=== PATIENT | female | born 1960 | race Caucasian/White ===

== ENCOUNTER 2016-09-20 18:57 | Inpatient (IN) | payer OTHER ==
--- NOTE | ~2016-09-20 | HP ---
History And Physical [place] [address] [facility] [place]. [address] NAME: SEBASTIAN MOULTON : 56 STATUS : [facility]#: [id number] AGE: 55 ADM/REG DATE : 09/20/16 MR#: [id number] REPORT SERV DATE: 09/21/16 DICTATED BY: KAMINI POWERS DATE: 09/21/16 REPORT STATUS : Draft TRANSCRIBED BY: MODL DATE: 09/21/16 DATE OF ADMISSION: 09/20/2016 CHIEF COMPLAINT: A 55-year-old female with metastatic colon cancer, now presenting with increasing abdominal pain and vomiting. HISTORY OF PRESENT ILLNESS: The patient's history was obtained through careful interview with the patient, coupled with review of [facility] and [facility]. The patient first developed colon cancer in 2009 and had a partial colectomy. Then, in 2013, she was found to have metastatic disease to her liver and was started on chemotherapy under the care of Dr. Abel. Unfortunately, she developed also lung metastasis in 2014. She has had much difficulty with her chemotherapy and is described as being "allergic to everything," having an intolerance to chemotherapy in general. For this reason, she has been considered for referral to [place] for trials of different kinds of chemotherapy. But over the last month, she has had progressive abdominal discomfort and shortness of breath characterized by dyspnea on exertion. She describes early satiety and nausea and vomiting episodes. She has had constipation as well. She has lost about six or seven pounds over the last month, and then over the last few days, she has developed progressive left chest discomfort under her breast. She describes it without much radiation, a pleuritic like discomfort exacerbated by coughing and deep breathing, a soreness quality, 6 to 7/10 severity. Her cough has been generally nonproductive. No fevers or chills. No rash. REVIEW OF SYSTEMS: Otherwise, a 14-point review of systems was obtained and was negative. PAST MEDICAL HISTORY: 1. Colon cancer as mentioned in HPI with metastasis to the liver and the lungs. 2. Gastroesophageal reflux disorder seen by Dr. Storey. 3. Diabetes. Hemoglobin A1c of 10.5, earlier in 08/2016. 4. Triglyceride induced pancreatitis. 5. No cardiac disease, no asthma. PAST SURGICAL HISTORY: 1. Partial colectomy. 2. Hysterectomy. 3. Right upper quadrant abscess drainage. ALLERGIES: ALLERGIES TO MANY TYPES OF CHEMOTHERAPY AND THEN PNEUMONIA VACCINE. SOCIAL HISTORY: Quit smoking about 20 years ago. No alcohol abuse. She is . History And Physical [address] [place]. [address] NAME: SEBASTIAN MOULTON : 56 STATUS : [facility]#: [id number] AGE: 55 ADM/REG DATE : 09/20/16 MR#: [id number] REPORT SERV DATE: 09/21/16 DICTATED BY: KAMINI POWERS DATE: 09/21/16 REPORT STATUS : Draft TRANSCRIBED BY: CRISPIN DATE: 09/21/16 suffers from polio and COPD. They live in [place], [place]. They have three sons, many grandchildren. FAMILY HISTORY: Father with liver cancer. Esophageal cancer. Mother of a stroke at 56 years of age. CURRENT MEDICATIONS: Include Norvasc/olmesartan 5/20 p.o. daily, Lipitor 40 mg p.o. daily, Dulcolax, Tricor 145 mg p.o. daily, hydrocodone p.r.n., ibuprofen p.r.n., Levemir 50 units subcutaneous twice a day, Humalog 12 units before each meal, Ativan 1 mg at bedtime, metoprolol 50 mg p.o. b.i.d., Zofran p.r.n., and Zantac 300 mg p.o. t.i.d. PHYSICAL EXAMINATION: VITAL SIGNS: Temperature 97.2, pulse 77, blood pressure 130/62, respiratory rate 18, and O2 saturation 96% on room air. GENERAL: A pleasant, cooperative female, in no significant distress at the time of interview. HEENT: Pupils equal, round, and reactive to light. Mild conjunctival pallor. No scleral icterus. Nares are patent. Oropharynx is clear of obstruction. Moist mucous membranes. NECK: Trachea midline. No thyromegaly. LYMPH: No cervical lymphadenopathy. No supraclavicular lymphadenopathy. No inguinal lymphadenopathy. RESPIRATORY: Clear to auscultation at bases. No wheezes, no rales, no rhonchi, but the patient does have a labored respiratory effort. CARDIOVASCULAR: Regular rate and rhythm. No murmurs, rubs, or gallops. No current extremity edema is appreciated. ABDOMEN: Soft, nontender, nondistended. Normal bowel sounds auscultated throughout. No hepatosplenomegaly. DERMATOLOGICAL: Warm and dry extremities. No pallor. No cyanosis. PSYCHIATRIC: Normal affect. Good mood. Alert and oriented x3. LABORATORY DATA: AST 303, ALT 333, alkaline phosphatase 353, total bilirubin 3.0, albumin 2.5, troponin negative, lipase 172. White blood cell count 7.3, hemoglobin 10, hematocrit 33, and platelets 198. MCV 79. Sodium 138, potassium 3.9, chloride 104, bicarb 23, BUN 13, creatinine 1.03, and glucose 165. STUDIES: 1. EKG by my own evaluation shows sinus rhythm, low QRS voltage. 2. CT scan of the abdomen and pelvis shows metastatic lung disease, liver metastasis. 3. An apparent imaging of the left wrist shows a fracture. ASSESSMENT AND PLAN: 1. Progressive metastatic colon cancer. Consult Dr. Abel, oncologist. 2. Chest pain. Check an echocardiogram. Check a venous Doppler ultrasound of legs. Seems consistent with pain from metastatic disease. Place on IV narcotic pain management secondary to 10/10 pain with nausea and vomiting. 3. Diabetes. Hemoglobin A1c of 10.5 in 08/2016. Place on sliding scale insulin, premeal insulin, and home Levemir. History And Physical [address] [address] NAME: SEBASTIAN MOULTON : 56 STATUS : [facility]#: [id number] AGE: 55 ADM/REG DATE : 09/20/16 MR#: [id number] REPORT SERV DATE: 09/21/16 DICTATED BY: KAMINI POWERS DATE: 09/21/16 REPORT STATUS : Draft TRANSCRIBED BY: CRISPIN DATE: 09/21/16 4. Left wrist fracture. Will follow closely. KPL/MODL Kamini Powers M.D. / [id number] CC: MD Ted Robert M.D. Derek W Holland, M.D.
--- NOTE | ~2016-09-20 | IDS ---
Interim Discharge Summary [facility] [address] [place]. [address] NAME: SEBASTIAN MOULTON : 56 STATUS : DIS IN PAT#: [id number] AGE: 55 ADM/REG DATE : 09/20/16 MR#: [id number] REPORT SERV DATE: 09/25/16 DICTATED BY: DOUGLAS ADDISON DATE: 09/24/16 REPORT STATUS : Draft TRANSCRIBED BY: MODL DATE: 09/24/16 ADMISSION DATE: 09/20/2016 DISCHARGE DATE: Interim summary covers up to date 09/24/2016. CHIEF COMPLAINT ON ADMISSION: Abdominal pain and vomiting. CURRENT HOSPITAL DIAGNOSES: 1. Progressive metastatic colon cancer with metastasis known to liver and lung. 2. Hyperbilirubinemia due to worsening liver function due to metastasis. 3. Acute encephalopathy likely multifactorial. 4. Epigastric pain. 5. Diabetes mellitus. 6. Elevated ammonia levels. HISTORY OF PRESENT ILLNESS: Please see full H and P by Dr. Sergey Gupta regarding initial presentation. HOSPITAL COURSE: 1. Progressive metastatic colon cancer with known metastasis to lung and liver. The patient was seen by Oncology, no further options for treatment, have recommended hospice. The patient has had a bad experience with hospice in the past and is resistant to this. At this point, we are awaiting for the family to make a decision given the patient's decline. 2. Encephalopathy. The patient's mental status has dramatically declined in the past 3 days. Her ammonia level is elevated, concerned if this may be hepatic, of hyperammonemia. Also concern with chronic benzo use and worsening liver function. I have initiated a benzodiazepine taper. Continue to follow. 3. Hyperbilirubinemia due to liver failure. The patient is slightly jaundiced, this seems to be grossly stable. Suspect again if this is due to progressive liver metastatic disease. 4. Epigastric pain with nausea on admission. The patient was taking chronic frequent NSAIDs. I am concerned that it may be gastritis versus esophagitis. Given poor prognosis, endoscopy was not pursued. She did improve with PPI and Carafate. Continue these medications. 5. Diabetes. She has had dramatic decrease in her insulin requirement. Again suspect this is progressive liver disease and poor p.o. intake as the culprit. She is currently on sliding scale. DISPOSITION: The patient's family has opted to get her home per her wishes. In order to do this, we have consulted hosp[facility] [place]. DISCHARGING DIAGNOSES #. Progressive metastatic colon cancer with progressive liver disease as well as lung metastases. #. Worsening encephalopathy. Interim Discharge Summary [facility] [place]. [address] NAME: SEBASTIAN MOULTON : 56 STATUS : DIS IN PAT#: [id number] AGE: 55 ADM/REG DATE : 09/20/16 MR#: [id number] REPORT SERV DATE: 09/25/16 DICTATED BY: DOUGLAS ADDISON DATE: 09/24/16 REPORT STATUS : Draft TRANSCRIBED BY: MODL DATE: 09/24/16 #. Hyperbilirubinemia. #. Hyperammonemia. Time spent on this including discussion with case management, patient, and patient's family is greater than 30 minutes. DNK/MODL Douglas Addison MD / [id number] / [id number] CC: MD Ted Robert M.D.
[2016-09-20 15:29] LABS: BASOPHILS 0.3 %; BASOPHILS ABSOLUTE 0.02 10/3/uL (0.0-0.16); EOSINOPHILS 1.9 %; EOSINOPHILS ABSOLUTE 0.14 10/3/uL (0.0-0.53); ER CBC TAT 0 Hrs 11 Mins; HEMATOCRIT 32.7 % (36.0-48.0); HEMOGLOBIN 10.4 g/dL (12.0-16.0); IMMATURE GRANULOCYTES 0.1 %; IMMATURE GRANULOCYTES ABSOLUTE 0.01 10/3/uL (0.0-0.11); LYMPHOCYTES 17.7 %; LYMPHOCYTES ABSOLUTE 1.29 10/3/uL (0.67-4.30); MANUAL DIFF NO %; MEAN CORPUS HGB CONC 31.8 g/dL (32.0-36.0); MEAN CORPUSCULAR HEMOGLOB 25.1 pg (26.0-34.0); MONOCYTES 8.2 %; NEUTROPHILS 71.8 %; NEUTROPHILS ABSOLUTE 5.23 10/3/uL (2.02-8.40); PLATELET COUNT 198 10/3/uL (150-400); RED CELL COUNT 4.14 10/6/uL (4.0-5.6); WHITE BLOOD CELLS 7.3 10/3/uL (4.5-10.5)
[2016-09-20 15:40] LABS: A/G RATIO 0.5 (0.7-1.9); ALBUMIN 2.5 G/DL (3.5-5.0); ALKALINE PHOSPHATASE 353 U/L (45-117); BUN (BLOOD UREA NITROGEN) 13 MG/DL (6-23); CALCIUM, SERUM 9.8 MG/DL (8.5-10.4); CHLORIDE, SERUM 104 MMOL/L (96-112); CO2 (CARBON DIOXIDE) 23 MMOL/L (24-34); CREATININE 1.08 MG/DL (0.55-1.02); GFR AFRICAN AMERICAN 66 ML/MIN (>=60); GFR NON AFRICAN AMERICAN 57 ML/MIN (>=60); GLOBULIN 5.1 G/DL (2.5-4.1); GLUCOSE, SERUM 165 MG/DL (60-99); POTASSIUM, SERUM 3.9 MMOL/L (3.5-5.3); SGOT(AST) 303 U/L (5-40); SGPT(ALT) 33 U/L (5-65); SODIUM, SERUM 138 MMOL/L (135-148); TOTAL PROTEIN 7.6 G/DL (6.0-8.5)
[2016-09-20 15:58] LABS: PLATELET ESTIMATE ADQ (ADEQUATE); TARGET CELLS FEW (3-10/OIF) (0-1/OIF)
[2016-09-20 15:59] LABS: TEARDROP SHAPED RBCS OCC (0-2/OIF)
[~2016-09-20 18:57] MED LIST: ACET500CAP PO; ALEVE220 MG PO; APIDRA SC; ASAB PO; ATV.5 PO; ATV1 PO; AZOR1 TAB PO; BEN25 PO; CIP5 PO; CLARITD24H PO; CRESTOR10 PO; CRESTOR20 MG PO; DORYX100 MG PO; FORTAMET500 MG PO; GLUCXL10 PO; GLUMETZA500 MG PO; IBU800 PO; JANUVIA50 PO; LANTUS SC; LEVEMIR SC; LOP50 PO; LORT7 PO; MULTIPLE VIT PO; MULTIVITAMI1 PO; NORCO1 TAB PO; NORV5 PO; NOVOLOG SC; NOVOLOGMIX SC; NOVOPEN SC; NOVOPENMIX SC; PR12.5 PO; PRIN10 PO; PRIN20 PO; PROTONIX PO; TRILIPIX135 MG PO; VANCOCIN HCL125 MG PO; VANCOMYCIN; ZANTAC150 MG PO; ZESTRIL10 MG PO; ZOCOR; ZOCOR80 MG PO; ZOFRAN4 PO; ZOFRAN8 PO; [UNRECOGNIZED DRUG - REMARK] PO
[2016-09-20 19:12] LABS: TROPONIN I <0.02 NG/ML (<0.05)
[2016-09-20] MEDS ORDERED: HUMALOG SC (22:27)
[2016-09-20] MEDS ORDERED: LEVEMFLXPN SC (22:27)
[2016-09-20] MEDS ORDERED: ZANTAC300 MG PO (22:28)
[2016-09-20] MEDS ORDERED: LIPITOR40 PO (22:28)
[2016-09-20] MEDS ORDERED: IBU800 PO ×2 (22:29→22:35)
[2016-09-20] MEDS ORDERED: AZOR1 TAB PO (22:29)
[2016-09-20] MEDS ORDERED: ATV1 PO (22:29)
[2016-09-20] MEDS ORDERED: LOP50 PO (22:30)
[2016-09-20] MEDS ORDERED: BIST PO (22:30)
[2016-09-20] MEDS ORDERED: TRICOR145 PO (22:30)
[2016-09-20] MEDS ORDERED: PR25 PO (22:31)
[2016-09-20] MEDS ORDERED: ZOFRAN8 PO (22:31)
[2016-09-20] MEDS ORDERED: NORCO1 TAB PO (22:36)
[2016-09-21 06:38] LABS: BASOPHILS 0.4 %; BASOPHILS ABSOLUTE 0.03 10/3/uL (0.0-0.16); EOSINOPHILS 2.2 %; EOSINOPHILS ABSOLUTE 0.17 10/3/uL (0.0-0.53); HEMATOCRIT 30.5 % (36.0-48.0); HEMOGLOBIN 9.9 g/dL (12.0-16.0); IMMATURE GRANULOCYTES 0.3 %; IMMATURE GRANULOCYTES ABSOLUTE 0.02 10/3/uL (0.0-0.11); LYMPHOCYTES ABSOLUTE 1.47 10/3/uL (0.67-4.30); MEAN CORPUS HGB CONC 32.5 g/dL (32.0-36.0); MEAN CORPUSCULAR HEMOGLOB 25.9 pg (26.0-34.0); MEAN CORPUSCULAR VOLUME 79.8 fL (80-100); MONOCYTES 10.8 %; MONOCYTES ABSOLUTE 0.84 10/3/uL (0.21-1.20); NEUTROPHILS 67.3 %; NEUTROPHILS ABSOLUTE 5.22 10/3/uL (2.02-8.40); PLATELET COUNT 216 10/3/uL (150-400); RED CELL COUNT 3.82 10/6/uL (4.0-5.6); WHITE BLOOD CELLS 7.8 10/3/uL (4.5-10.5)
[2016-09-21 06:42] LABS: MANUAL DIFF NO %
[2016-09-21 06:43] LABS: INTERNATIONAL NORMAL RATI 1.3 UNITS (-); PARTIAL THROMBO TIME 37.8 SEC (22.5-37.2)
[2016-09-21 06:58] LABS: A/G RATIO 0.4 (0.7-1.9); ALBUMIN 2.2 G/DL (3.5-5.0); BUN (BLOOD UREA NITROGEN) 14 MG/DL (6-23); CALCIUM, SERUM 9.4 MG/DL (8.5-10.4); CHLORIDE, SERUM 106 MMOL/L (96-112); GFR AFRICAN AMERICAN 82 ML/MIN (>=60); GFR NON AFRICAN AMERICAN 71 ML/MIN (>=60); GLOBULIN 4.9 G/DL (2.5-4.1); POTASSIUM, SERUM 3.6 MMOL/L (3.5-5.3); SGOT(AST) 308 U/L (5-40); SGPT(ALT) 33 U/L (5-65); SODIUM, SERUM 137 MMOL/L (135-148); TOTAL BILIRUBIN 3.2 MG/DL (0-1.2); TOTAL PROTEIN 7.1 G/DL (6.0-8.5); TROPONIN I <0.02 NG/ML (<0.05)
[2016-09-21 07:00] LABS: ALKALINE PHOSPHATASE 335 U/L (45-117); CO2 (CARBON DIOXIDE) 18 MMOL/L (24-34); GLUCOSE, SERUM 95 MG/DL (60-99)
[2016-09-21 07:30] LABS: PLATELET ESTIMATE ADQ (ADEQUATE); POIKILOCYTOSIS 1+ (5-10/OIF) (0-5/OIF); TARGET CELLS FEW (3-10/OIF) (0-1/OIF)
[2016-09-21 07:31] LABS: HYPOCHROMIA 1+ (3-10/OIF) (0-2/OIF)
[2016-09-21 16:15] LABS: WBC (NOT ORDERED) (RFLEX) 0 (0-5)
[2016-09-21 17:12] LABS: ASCORBIC ACID (UR NOT ORDER) NEG (NEG); BILIRUBIN, URINE NEGATIVE (NEG); KETONE, URINE NEGATIVE (NEG); LEUKOCYTE ESTERASE(NOT OR NEG (NEG)
[2016-09-22 07:27] LABS: HEMATOCRIT 31.7 % (36.0-48.0); HEMOGLOBIN 10.2 g/dL (12.0-16.0)
[2016-09-22 07:38] LABS: ALBUMIN 2.3 G/DL (3.5-5.0); ALKALINE PHOSPHATASE 341 U/L (45-117); BUN (BLOOD UREA NITROGEN) 18 MG/DL (6-23); CALCIUM, SERUM 10.3 MG/DL (8.5-10.4); CHLORIDE, SERUM 106 MMOL/L (96-112); CO2 (CARBON DIOXIDE) 20 MMOL/L (24-34); CREATININE 1.21 MG/DL (0.55-1.02); DIRECT BILIRUBIN 2.8 MG/DL (0.0-0.4); GFR AFRICAN AMERICAN 58 ML/MIN (>=60); GFR NON AFRICAN AMERICAN 50 ML/MIN (>=60); GLUCOSE, SERUM 124 MG/DL (60-99); INDIRECT BILIRUBIN(NOT ORDER) 0.8 MG/DL (0.1-0.9); POTASSIUM, SERUM 4.2 MMOL/L (3.5-5.3); SGOT(AST) 318 U/L (5-40); SGPT(ALT) 37 U/L (5-65); SODIUM, SERUM 137 MMOL/L (135-148); TOTAL BILIRUBIN 3.6 MG/DL (0-1.2); TOTAL PROTEIN 7.3 G/DL (6.0-8.5)
[2016-09-23 04:45] LABS: A/G RATIO 0.5 (0.7-1.9); ALBUMIN 2.3 G/DL (3.5-5.0); ALKALINE PHOSPHATASE 330 U/L (45-117); CALCIUM, SERUM 9.7 MG/DL (8.5-10.4); CHLORIDE, SERUM 107 MMOL/L (96-112); CO2 (CARBON DIOXIDE) 19 MMOL/L (24-34); CREATININE 1.01 MG/DL (0.55-1.02); GFR AFRICAN AMERICAN 72 ML/MIN (>=60); GFR NON AFRICAN AMERICAN 62 ML/MIN (>=60); GLOBULIN 4.7 G/DL (2.5-4.1); GLUCOSE, SERUM 146 MG/DL (60-99); SGPT(ALT) 37 U/L (5-65); SODIUM, SERUM 138 MMOL/L (135-148); TOTAL BILIRUBIN 3.3 MG/DL (0-1.2)
[2016-09-23 04:46] LABS: BUN (BLOOD UREA NITROGEN) 22 MG/DL (6-23); POTASSIUM, SERUM 4.1 MMOL/L (3.5-5.3); SGOT(AST) 321 U/L (5-40)
[2016-09-23 11:15] LABS: BASOPHILS 0.6 %; BASOPHILS ABSOLUTE 0.05 10/3/uL (0.0-0.16); EOSINOPHILS 1.3 %; HEMATOCRIT 32.2 % (36.0-48.0); HEMOGLOBIN 10.2 g/dL (12.0-16.0); IMMATURE GRANULOCYTES 0.3 %; IMMATURE GRANULOCYTES ABSOLUTE 0.02 10/3/uL (0.0-0.11); LYMPHOCYTES 21.1 %; LYMPHOCYTES ABSOLUTE 1.67 10/3/uL (0.67-4.30); MEAN CORPUS HGB CONC 31.7 g/dL (32.0-36.0); MEAN CORPUSCULAR VOLUME 82.1 fL (80-100); MONOCYTES 10.9 %; MONOCYTES ABSOLUTE 0.86 10/3/uL (0.21-1.20); NEUTROPHILS 65.8 %; PLATELET COUNT 198 10/3/uL (150-400); RBC DISTRIBUTION WIDTH 24.9 % (12.0-16.0); RED CELL COUNT 3.92 10/6/uL (4.0-5.6); WHITE BLOOD CELLS 7.9 10/3/uL (4.5-10.5)
[2016-09-23 11:17] LABS: MANUAL DIFF NO %
[2016-09-23 11:44] LABS: HYPOCHROMIA 1+ (3-10/OIF) (0-2/OIF); PLATELET ESTIMATE ADQ (ADEQUATE); TARGET CELLS FEW (3-10/OIF) (0-1/OIF)
[2016-09-24 04:01] LABS: BASOPHILS 0.5 %; BASOPHILS ABSOLUTE 0.04 10/3/uL (0.0-0.16); EOSINOPHILS ABSOLUTE 0.08 10/3/uL (0.0-0.53); HEMATOCRIT 29.6 % (36.0-48.0); IMMATURE GRANULOCYTES 0.1 %; IMMATURE GRANULOCYTES ABSOLUTE 0.01 10/3/uL (0.0-0.11); LYMPHOCYTES 20.7 %; LYMPHOCYTES ABSOLUTE 1.66 10/3/uL (0.67-4.30); MEAN CORPUSCULAR HEMOGLOB 26.5 pg (26.0-34.0); MONOCYTES 11.5 %; MONOCYTES ABSOLUTE 0.92 10/3/uL (0.21-1.20); NEUTROPHILS 66.2 %; RBC DISTRIBUTION WIDTH 24.6 % (12.0-16.0); RED CELL COUNT 3.77 10/6/uL (4.0-5.6)
[2016-09-24 04:02] LABS: MANUAL DIFF NO %; MEAN CORPUS HGB CONC 33.8 g/dL (32.0-36.0); MEAN CORPUSCULAR VOLUME 78.5 fL (80-100); PLATELET COUNT 258 10/3/uL (150-400)
[2016-09-24 04:10] LABS: ALBUMIN 2.2 G/DL (3.5-5.0); BUN (BLOOD UREA NITROGEN) 19 MG/DL (6-23); CALCIUM, SERUM 9.7 MG/DL (8.5-10.4); CHLORIDE, SERUM 107 MMOL/L (96-112); CREATININE 0.97 MG/DL (0.55-1.02); DIRECT BILIRUBIN 2.8 MG/DL (0.0-0.4); GFR AFRICAN AMERICAN 75 ML/MIN (>=60); GFR NON AFRICAN AMERICAN 65 ML/MIN (>=60); GLUCOSE, SERUM 146 MG/DL (60-99); INDIRECT BILIRUBIN(NOT ORDER) 0.8 MG/DL (0.1-0.9); POTASSIUM, SERUM 3.4 MMOL/L (3.5-5.3); SGOT(AST) 310 U/L (5-40); SGPT(ALT) 35 U/L (5-65); SODIUM, SERUM 142 MMOL/L (135-148); TOTAL BILIRUBIN 3.6 MG/DL (0-1.2); TOTAL PROTEIN 7.1 G/DL (6.0-8.5)
[2016-09-24 04:14] LABS: ALKALINE PHOSPHATASE 366 U/L (45-117); CO2 (CARBON DIOXIDE) 25 MMOL/L (24-34)
[2016-09-24 04:28] LABS: PLATELET ESTIMATE ADQ (ADEQUATE); POLYCHROMASIA 1+ (2-5/OIF) (0-1/OIF); TARGET CELLS FEW (3-10/OIF) (0-1/OIF)
[2016-09-24 04:29] LABS: VACUOLATED NEUTROPHILES OCC
== END 2016-09-24 18:34 | disposition hospice, home (50) | DRG 374 ==
LOC: ER 18:57 → 4EA 22:34
PROVIDERS: Emergency Medicine; Internal Medicine
DX: C18.9 Malignant neoplasm of colon, unspecified (principal); G93.40 Encephalopathy, unspecified; N17.9 Acute kidney failure, unspecified; C78.7 Secondary malignant neoplasm of liver and intrahepatic bile duct; C78.00 Secondary malignant neoplasm of unspecified lung; E87.2 Acidosis; E80.6 Other disorders of bilirubin metabolism; Z66 Do not resuscitate; E11.65 Type 2 diabetes mellitus with hyperglycemia
CPT/HCPCS: 70450; 71020; 73110-LT; 74176; 80048; 80053; 80076; 81001; 82140; 82570; 82962; 83690; 83735; 83880; 84300; 84443; 84484; 85014; 85018; 85025; 85610; 85730; 93005; 96374; 99285; A9270-GY; C9113; J2405